=== PATIENT | male | born 1990 | race Hispanic/Latino ===

== ENCOUNTER 2023-07-17 17:45 | Observation (INO) | payer SELFPAY ==
[2023-07-17] VITALS (19 sets, daily range): BP systolic 101–151; BP diastolic 63–91
[~2023-07-17] VITALS: Ht 175.3 cm; Wt 84.0 kg
[2023-07-17 18:44] LABS: BASO% 0.1 % (0-3); EOS% 3.2 % (0-8); HEMATOCRIT 42.4 % (39.0-50.0); HEMOGLOBIN 14.5 g/dl (14.0-18.0); IMMATURE GRANULOCYTES 0.1 % (0.0-5.0); LYMPH% 4.8 % (15-41); MEAN CELL VOLUME 84.8 fL CALC (80.0-100.0); MEAN CORPUSCULAR HGB CONC 34.2 g/dL CAL (32.0-36.0); MONO% 6.2 % (2-13); NEUT# 9.33 thou/uL (1.82-7.42); NEUT% 85.6 % (42-76); RED CELL DISTRI WIDTH 11.7 % (11.5-15.5)
[2023-07-17 19:00] LABS: ALKALINE PHOSPHATASE 67 u/l (38-126); ANION GAP 15 (6-22 (CALC)); BILIRUBIN, TOTAL 0.7 mg/dL (0.2-1.3); BUN 15 mg/dL (9-20); BUN/CREATININE RATIO 16 (12-20 (CALC)); CARBON DIOXIDE 26 mmol/l (22-30); CHLORIDE 102 mmol/l (95-108); CREATININE 0.9 mg/dL (0.7-1.3); GFR FOR AFR.AMER. > 60 ML/MIN (>=60 (CALC)); GFR OTHER RACES > 60 ML/MIN (>=60 (CALC)); POTASSIUM 4.1 mmol/l (3.5-5.1); SGOT/AST 29 u/l (17-59); SODIUM 138 mmol/l (137-146); TOTAL PROTEIN 8.3 g/dL (6.3-8.2)
[2023-07-17 21:13] LABS: URINE BILIRUBIN - DIPSTICK Negative (NEGATIVE); URINE BLOOD DIPSTICK Negative (NEGATIVE); URINE GLUCOSE - DIPSTICK Negative (NEGATIVE); URINE KETONE Negative (NEGATIVE); URINE LEUK ESTERASE Negative (NEGATIVE); URINE NITRITE - DIPSTICK Negative (Negative); URINE PROTEIN - DIPSTICK Trace mg/dL (NEG-TRACE); URINE SPECIFIC GRAVITY 1.025; URINE UROBILINOGEN - DIPSTICK 0.2 E.U./dL (0.2)
[2023-07-17 21:16] LABS: URINE COLOR Yellow
[2023-07-18 03:18] VITALS: BP 96/53
[2023-07-18 05:30] LABS: BASO% 0.1 % (0-3); EOS% 0.4 % (0-8); HEMATOCRIT 38.3 % (39.0-50.0); HEMOGLOBIN 12.9 g/dl (14.0-18.0); IMMATURE GRANULOCYTES 0.2 % (0.0-5.0); LYMPH% 4.8 % (15-41); MEAN CELL VOLUME 86.8 fL CALC (80.0-100.0); MEAN CORPUSCULAR HGB 29.3 pG CALC (26.0-32.0); MEAN CORPUSCULAR HGB CONC 33.7 g/dL CAL (32.0-36.0); MONO% 2.4 % (2-13); NEUT# 9.57 thou/uL (1.82-7.42); NEUT% 92.1 % (42-76); RED BLOOD COUNT 4.41 mill/uL (4.70-6.10)
[2023-07-18 05:48] LABS: ALKALINE PHOSPHATASE 54 u/l (38-126); ANION GAP 12 (6-22 (CALC)); BILIRUBIN, TOTAL 0.6 mg/dL (0.2-1.3); BUN 13 mg/dL (9-20); BUN/CREATININE RATIO 20 (12-20 (CALC)); C-REACTIVE PROTEIN 5.6 mg/dL (0-0.9); CARBON DIOXIDE 22 mmol/l (22-30); CHLORIDE 106 mmol/l (95-108); CPK 202 u/l (55-170); CREATININE 0.7 mg/dL (0.7-1.3); GFR FOR AFR.AMER. > 60 ML/MIN (>=60 (CALC)); GFR OTHER RACES > 60 ML/MIN (>=60 (CALC)); POTASSIUM 4.1 mmol/l (3.5-5.1); SGOT/AST 26 u/l (17-59); SODIUM 137 mmol/l (137-146)
[2023-07-18 05:50] LABS: ALBUMIN 3.6 g/dL (3.2-5.0); TOTAL PROTEIN 6.5 g/dL (6.3-8.2)
[2023-07-18 06:41] VITALS: BP 110/68
[2023-07-18 10:04] VITALS: BP 112/68
[2023-07-18] MEDS ORDERED: VENTOLIN HFA108 MCG IN (10:39)
== END 2023-07-18 12:30 | disposition home or self-care (01) | DRG 917 ==
LOC: ED 17:45 → ED-I 21:30 → ED 21:53 → MS2 21:54
PROVIDERS: Emergency Medicine; ADMIT Student in an Organized Health Care Education/Training Program; ATTEND Student in an Organized Health Care Education/Training Program
DX: T65.891A Toxic effect of other specified substances, accidental (unintentional), initial encounter (principal); J96.91 Respiratory failure, unspecified with hypoxia; J68.3 Other acute and subacute respiratory conditions due to chemicals, gases, fumes and vapors; Y92.73 Farm field as the place of occurrence of the external cause; Y99.0 Civilian activity done for income or pay; Z20.822 Contact with and (suspected) exposure to COVID-19
CPT/HCPCS: G0378; J1650